=== PATIENT | male | born 1950 | race Caucasian/White ===

== ENCOUNTER → 2016-12-24 | Outpatient (CLI) | payer BC ==
--- NOTE | 2016-12-25 11:29 | CTL ---
EXAMINATION TYPE: CT Low Dose Lung DATE OF EXAM ORDERED: 12/24/2016 HISTORY: Tobacco use, years of smoking. Lung cancer screening CT DLP: [address] CTDI: 3.02 mGy Automated exposure control for dose reduction was used. SCREENING VISIT: 1 COMPARISON: None TECHNIQUE: Low dose computed tomography scan was performed through the chest at 1 mm thick sections a nd reconstructed images in the coronal plane at [address] DIAGNOSTIC QUALITY: Satisfactory FINDINGS: LUNG NODULES: None. LUNGS: COPD: Severity: Moderate Fibrosis: Severity: Moderate Lymph nodes: Not enlarged Other findings: Suspect honeycombing present bilaterally. RIGHT PLEURAL SPACE: Effusion: None Calcification: None Thickening: None Pneumothorax: None LEFT PLEURAL SPACE: Effusion: None Calcification: None Thickening: None Pneumothorax: None HEART: Heart Size: Normal Coronary calcification: None Pericardial effusion: None OTHER FINDINGS: Upper abdomen: Unremarkable Bony thorax: Thoracic spondylosis. Supraclavicular region: No adenopathy Other: IMPRESSION: Interstitial lung disease with honeycombing. Emphysema. FOLLOW UP CT CHEST RECOMMENDATION: [address] LUNG RAD: Lung rad 2
== END | disposition home or self-care (01) ==
LOC: RADCTMAIN 15:24
PROVIDERS: ATTEND Family Medicine
DX: Z12.2 Encounter for screening for malignant neoplasm of respiratory organs (principal); J43.9 Emphysema, unspecified; J84.9 Interstitial pulmonary disease, unspecified; F17.200 Nicotine dependence, unspecified, uncomplicated

== ENCOUNTER → 2017-11-18 | Outpatient (CLI) | payer BC ==
--- NOTE | 2017-11-18 09:18 | US ---
EXAMINATION TYPE: US extremity nonvasc complete RT, right Achilles tendon DATE OF EXAM: 11/18/2017 COMPARISON: NONE TECHNIQUE: Multiple sonographic images of the right Achilles tendon were obtained. CLINICAL HISTORY: 67-year-old male M76.61 Achilles tendonitis right leg. Pain with walking and flexin g. Findings: There is marked fusiform thickening of the right Achilles tendon especially the middle third portion measuring up to 1.3 cm AP. There is no discrete tear identified. A more focal area of hypoechogenicity shows increased vasculari ty along the superficial aspect of the mid to distal third fibrous suggesting more severe focal tendi nosis. There is mild effusion in the retrocalcaneal bursa. IMPRESSION: Moderate to severe middle third Achilles tendinosis on the right without tear.
== END | disposition home or self-care (01) ==
LOC: RADUSWWP 08:05
PROVIDERS: ATTEND Family Medicine
DX: M76.61 Achilles tendinitis, right leg (principal)

== ENCOUNTER → 2018-09-13 | Outpatient (CLI) | payer MEDICARE, BC ==
--- NOTE | 2018-09-14 09:43 | CTL ---
EXAMINATION TYPE: CT Low Dose Lung DATE OF EXAM ORDERED: 09/13/2018 HISTORY: Personal history tobacco use. Lung cancer screening CT DLP: [address] CTDI: 3.6 mGy Automated exposure control for dose reduction was used. SCREENING VISIT: 2 COMPARISON: Prior CT 12/24/2016 TECHNIQUE: Low dose computed tomography scan was performed through the chest at 1 mm thick sections a nd reconstructed images in the coronal plane at [address] DIAGNOSTIC QUALITY: Satisfactory FINDINGS: LUNG NODULES: None. LUNGS: Paraseptal emphysematous changes, interstitial prominence shows a similar distribution compared to pr ior exam. No pleural or pericardial effusion. HEART: Heart Size: Stable, normal Coronary calcification: Mild somewhat better seen than on prior exam likely unchanged Pericardial effusion: None OTHER FINDINGS: Upper abdomen: Unremarkable. Bony thorax: Stable Supraclavicular region: Unremarkable Other: No other significant finding IMPRESSION: Stable exam, benign, emphysema with some mild interstitial changes, no suspicious lung no dule FOLLOW UP CT CHEST RECOMMENDATION: [address] LUNG RAD: 2
== END | disposition home or self-care (01) ==
LOC: RADCTMAIN 16:17
PROVIDERS: ATTEND Family Medicine
DX: Z12.2 Encounter for screening for malignant neoplasm of respiratory organs (principal); J43.9 Emphysema, unspecified; F17.210 Nicotine dependence, cigarettes, uncomplicated